=== PATIENT | male | born 1945 | race Caucasian/White ===

== ENCOUNTER → 2018-09-17 | Outpatient (CLI) | payer MEDICARE, OTHER ==
[~2018-09-17] VITALS: Ht 170.2 cm; Wt 97.5 kg
[~2018-09-17] MED LIST: AGM875T PO; AMLO5TAB2 PO; ASPI-586 PO; ASPI-906 PO; BNZ20T PO; CATHETER FLUSH 10 ML SYR IV PRN; CLOP75TA PO; DOXA4TAB2 PO; DOXA8TAB3 PO; HYDR-3455 PO; METO-354 PO; OMEG1CAP52 PO; OMEP20CA12 PO; REGADENOSON 0.4 MG/5 ML SYR (LEXISCAN) IV ONE; ROSU5TAB PO; SILD50TA PO; SIME125C PO; TADA2.5T PO; TELM1TAB3 PO
[2018-09-17 13:09] VITALS: BP 148/81
--- NOTE | 2018-09-18 12:42 | STRESS TEST ---
DATE OF SERVICE: 09/17/2018 LEXISCAN MYOVIEW STRESS TEST REPORT REFERRING PHYSICIAN: Dr. Ying. Baseline heart rate is 67. Baseline blood pressure 205/97. Baseline EKG is sinus rhythm with no ischemic changes. IN SUMMARY: The patient was injected with 10.33 mCi of technetium-99 Myoview and the resting images were obtained. Then, the patient received 0.4 mg of Lexiscan, followed by 30.7 mCi of technetium-99 Myoview. Throughout the test, there were no EKG changes. The resting and stress images were reviewed and compared in the short axis, horizontal long axis, and vertical long axis views. Review of the images showed good radiotracer uptake with no significant ischemia or infarction. SSS is 0. TID value 1.16. On the gated images, the left ventricle appeared to be in normal size with normal contractility. Calculated ejection fraction 45%. IN CONCLUSION: 1. The patient tolerated Lexiscan well. 2. No significant ischemia or infarction on SPECT images. 3. Normal left ventricular size with normal contractility. Calculated ejection fraction 45%. Job ID: [id number] DocumentID: [id number] Dictated Date: 09/18/2018 08:46:18 Relationship Mgr Date: 09/18/2018 12:41:43 Dictated By: CHRISTINE MARTINEZ MD
== END ==
LOC: CARD 11:20
PROVIDERS: ATTEND Internal Medicine Cardiovascular Disease
DX: I25.10 Atherosclerotic heart disease of native coronary artery without angina pectoris (principal); I65.23 Occlusion and stenosis of bilateral carotid arteries; K21.9 Gastro-esophageal reflux disease without esophagitis; I10 Essential (primary) hypertension; E78.5 Hyperlipidemia, unspecified
CPT/HCPCS: 78452; 93017; 93306

== ENCOUNTER 2020-07-28 06:32 | Outpatient (CLI) | payer MEDICARE ==
[~2020-07-28] VITALS: Ht 170.2 cm; Wt 90.9 kg
[~2020-07-28 06:32] MED LIST changes: -CATHETER FLUSH 10 ML SYR IV PRN; -REGADENOSON 0.4 MG/5 ML SYR (LEXISCAN) IV ONE
[2020-07-28] MEDS ORDERED: MTC10T PO (12:59)
[2020-07-28] MEDS ORDERED: ROSU5TAB13 PO (12:59)
[2020-07-28] MEDS ORDERED: ASPI-999 PO (12:59)
[2020-07-28] MEDS ORDERED: AMLO-250 PO (12:59)
[2020-07-28] MEDS ORDERED: BENA20TA7 PO (12:59)
[2020-07-28] MEDS ORDERED: OMEG-77 PO (12:59)
== END 2020-07-28 13:01 | disposition home or self-care (01) ==
LOC: PREOP 06:32
PROVIDERS: ATTEND Specialist
DX: Z01.818 Encounter for other preprocedural examination (principal)

== ENCOUNTER 2020-08-05 10:26 | Day surgery (SDC) | payer MEDICARE ==
[~2020-08-05] VITALS: Ht 170.2 cm; Wt 90.9 kg
[~2020-08-05 10:26] MED LIST changes: +AMLO-250 PO; +ASPI-999 PO; +BENA20TA7 PO; +MTC10T PO; +OMEG-77 PO; +ROSU5TAB13 PO
[2020-08-05] MEDS ORDERED: POVIDONE (BETADINE) OPHTH SOLN 5% 30 ML OP ONE (10:30)
[2020-08-05] MEDS ORDERED: MOXIFLOXACIN OPHTH SOLN 5 MG/ML 0.3 ML SYRINGE OP ONE (10:30)
[2020-08-05] MEDS ORDERED: TIMOLOL MALEATE 0.5% 5 ML (TIMOPTIC) BTL OU PRN (10:30)
[2020-08-05] MEDS ORDERED: LIDOCAINE PF 1% 2 ML VIAL IR PRN (10:30)
[2020-08-05] MEDS: TETRACAINE 0.5% OPHTH SOLN 4 ML BTL (SINGLE DOSE ONLY) OU PRN ×5 (10:41→10:58)
[2020-08-05] MEDS: TROPICAMIDE 1% OPH SOLN (MYDRIACYL) 15 ML BTL OP SCH ×4 (10:47→10:58)
[2020-08-05] MEDS: PHENYLEPHRINE 10% OPHTH (NEO-SYN) 5 ML BTL OU SCH ×4 (10:47→10:58)
[2020-08-05 10:51] VITALS: BP 178/99
[2020-08-05] MEDS ORDERED: MIDAZOLAM 2 MG/2 ML (VERSED) VIAL ONE (10:55)
--- NOTE | 2020-08-05 11:39 | Ophthalmologist Pre-Op Note ---
Pre-Operative Progress Note H&P Reviewed The H&P was reviewed, patient examined and no changes noted. Date H&P Reviewed: Aug 05, 2020 Time H&P Reviewed: 11:39 Pre-Op Dx Cataract, Right Eye AMINAH WILKINSON MD Aug 05, 2020 11:39
[2020-08-05] MEDS ORDERED: acetaZOLAMIDE ER 500 MG CAP (DIAMOX SEQUELS) PO ONE (12:00)
--- NOTE | 2020-08-05 12:06 | Ophthalmology Operative Report ---
Cataract removal/placement IOL PREOPERATIVE DIAGNOSIS: Cataract Right Eye POSTOPERATIVE DIAGNOSIS: Cataract Right Eye PROCEDURE: Cataract removal and placement of posterior chamber implant, right eye SURGEON: Matthew Wilkinson ANESTHESIA: Topical with sedation COMPLICATIONS: None ESTIMATED BLOOD LOSS: Minimal DESCRIPTION OF PROCEDURE: After proper informed consent was obtained, the patient, a 74 male, was taken to the Operating Room and the right eye was anesthetized with tetracaine. The right eye was then prepped and draped in the usual manner. A wire lid speculum was placed. A paracentesis was made at the left hand position. Preservative free lidocaine was injected into the anterior chamber followed by viscoelastic. A clear corneal incision was made in the temporal position. A capsulorrhexis was preformed and the central nuclear and cortical material were removed. The posterior capsule was polished and Bernard 20.5 [id number] IOL was placed into the capsular bag. The residual viscoelastic was aspirated and balanced saline solution was injected into the anterior chamber. Moxifloxacin was injected into the anterior chamber. The wound was checked and found to be water tight. The patient tolerated the procedure well without complications. MATTHEW WILKINSON MD Aug 05, 2020 12:06
[2020-08-05 12:08] VITALS: BP 179/93
--- NOTE | 2020-08-05 16:02 | Anesthesia-General Post-Op ---
MAC Patient Condition Mental Status/LOC: Same as Preop Cardiovascular: Satisfactory Nausea/Vomiting: Absent Respiratory: Satisfactory Pain: Controlled Complications: Absent Post Op Complications Complications None Follow Up Care/Instructions Patient Instructions None needed. Anesthesiology Discharge Order Discharge Order Patient was seen after the procedure and he was doing well, no complaints, stable vital signs, no apparent adverse anesthesia problems. JONATHAN WHEELER 18, 2021 16:02
== END 2020-08-05 12:13 ==
LOC: SDC 10:26
PROVIDERS: ATTEND Specialist
DX: H25.11 Age-related nuclear cataract, right eye (principal); I10 Essential (primary) hypertension; Z79.82 Long term (current) use of aspirin; Z79.899 Other long term (current) drug therapy; Z83.3 Family history of diabetes mellitus; Z80.51 Family history of malignant neoplasm of kidney; Z80.42 Family history of malignant neoplasm of prostate
CPT/HCPCS: 66984; V2632

== ENCOUNTER → 2020-08-15 | Outpatient (CLI) | payer MEDICARE | END | disposition home or self-care (01) | LOC: PREOP 06:27 | PROVIDERS: ATTEND Specialist | DX: Z01.818 Encounter for other preprocedural examination (principal) ==

== ENCOUNTER → 2022-01-02 | Outpatient (CLI) | payer MEDICARE ==
[~2022-01-02] MED LIST changes: +AMLO-251 PO; +BENA-3 PO; -BENA20TA7 PO; +OMEP20CA18 PO; +REGADENOSON 0.4 MG/5 ML SYR (LEXISCAN) IV ONE; +SILD20TA14 PO
[2022-01-02] MEDS: CATHETER FLUSH 10 ML SYR IVP PRN ×2 (10:54→12:15)
[2022-01-02 12:04] VITALS: BP 201/89
--- NOTE | 2022-01-03 08:26 | Cardiology Stress Test Report ---
Stress Test Report Date of Procedure/Referring: Date of Procedure: Jan 02, 2022 PCP Danny Alba DO Admitting Physician Admitting Physician: Attending Physician: Christine Martinez MD Indications: CAD Baseline Heart Rate: 63 Baseline Blood Pressure: Blood Pressure Systolic: 201 Blood Pressure Diastolic: 89 Baseline Vitals Vital Signs Date Time Temp Pulse Resp B/P (MAP) Pulse Ox O2 Delivery O2 Flow Rate FiO2 01/02/22 12:04 65 201/89 (126) 99 Room Air Baseline EKG: Baseline EKG: LBBB Summary After explaining the procedure to the patient, he signed a consent and then brought to the stress nuclear laboratory. Patient received 0.4 mg Lexiscan for stress test, ECG, heart rate and blood pressure were monitored continuously. Resting and stress dose of radio tracer were injected, imaging was acquired and reviewed in short axis, horizontal long axis and vertical long axis views. TID: 1.1 SSS: 9 SDS: 7 EF: 37 1. Patient tolerated Lexiscan well 2. Baseline hypertension persisted during test 3. Reversible ischemia involving the mid to apical anterior wall and mid to apical inferior wall 4. Normal left ventricular size, ejection fraction 37% 5. Baseline left bundle branch block persisted during test CHRISTINE MARTINEZ MD Jan 03, 2022 08:26
== END ==
LOC: CARD 09:55
PROVIDERS: ATTEND Internal Medicine Cardiovascular Disease
DX: I34.0 Nonrheumatic mitral (valve) insufficiency (principal); I11.9 Hypertensive heart disease without heart failure; I25.10 Atherosclerotic heart disease of native coronary artery without angina pectoris
CPT/HCPCS: 78452; 93017; A9502; C8929; 93306

== ENCOUNTER 2022-01-05 07:48 | Day surgery (SDC) | payer MEDICARE ==
[2022-01-05] VITALS (12 sets, daily range): BP systolic 132–177; BP diastolic 63–88
[~2022-01-05] VITALS: Ht 170.2 cm; Wt 93.6 kg
[~2022-01-05 07:48] MED LIST changes: -AMLO-251 PO; -OMEP20CA18 PO; -REGADENOSON 0.4 MG/5 ML SYR (LEXISCAN) IV ONE; -SILD20TA14 PO
[2022-01-05] MEDS ORDERED: LIDOCAINE 1% INJ 30 ML (XYLOCAINE) VIAL ONE (07:51)
[2022-01-05] MEDS ORDERED: HEParin (CATH LAB) 2,000 ML IV ONE (07:51)
[2022-01-05] MEDS ORDERED: NS IV 1000 ML 1,000 ML ONE (07:51)
[2022-01-05] MEDS ORDERED: NS IV 1000 ML 1,000 ML IV SCH ×2 (08:00→10:15)
[2022-01-05 08:23] LABS: HEMATOCRIT 41 % (40-54); HEMOGLOBIN 14.3 g/dL (13.3-17.7); MEAN CORPUSCULAR HEMOGLOBIN 31 pg (25-34); MEAN CORPUSCULAR HGB CONC 35 g/dL (32-36); MEAN CORPUSCULAR VOLUME 89 fL (80-99); MEAN PLATELET VOLUME 9.4 fL (9.0-12.2); PLATELET COUNT 208 10^3/uL (130-400); WHITE BLOOD COUNT 6.4 10^3/uL (4.3-11.0)
--- NOTE | 2022-01-05 08:33 | Diagnostic Imaging Report ---
INDICATION: Evaluation prior to heart catheterization.. TECHNIQUE: Single view chest 8:27 AM. CORRELATION STUDY: None FINDINGS: Heart size upper limits of normal. Vasculature within normal limits. The lungs are clear with no consolidating infiltrate. There is no significant effusion or pneumothorax. IMPRESSION: 1. Negative appearing single view chest. Dictated by: Dictated on workstation # [id number]
[2022-01-05 08:35] LABS: PROTHROMBIN TIME PATIENT 13.1 SEC (12.2-14.7)
[2022-01-05] MEDS ORDERED: OMEP20CA18 PO (08:37)
[2022-01-05] MEDS ORDERED: SILD20TA14 PO (08:37)
[2022-01-05 08:44] LABS: ALBUMIN 4.4 GM/DL (3.2-4.5); BILIRUBIN,TOTAL 0.4 MG/DL (0.1-1.0); CALCIUM 9.2 MG/DL (8.5-10.1); CREATININE SERUM 1.06 MG/DL (0.60-1.30)
[2022-01-05] MEDS ORDERED: fentaNYL INJ 100 MCG/2 ML AMP ONE (09:15)
[2022-01-05] MEDS ORDERED: MIDAZOLAM 5 MG/5 ML (VERSED) VIAL ONE (09:15)
--- NOTE | 2022-01-05 09:21 | Cardiac Procedure Note-CS/ASA ---
Pre-Procedure Note Pre-Op Procedure Note Date of Available H&P: Dec 12, 2021 Date H&P Reviewed: Jan 05, 2022 Time H&P Reviewed: 09:00 History & Physical: H&P Reviewed, Patient Examed, No changes noted Pre-Operative Diagnosis: CAD Conscious Sedation Pre-Proced Time 09:00 ASA Score 3 For ASA 3 and 4: Consider anesthesia and medical clearance. Also, for patients with a history of failed moderate sedation consider anesthesia. Airway Lungs Heart ASA score ASA 1: a normal healthy patient ASA 2: a patient with a mild systemic disease (mid diabetes, controlled hypertension, obesity ASA 3: a patient with a severe systemic disease that limits activity (angina, COPD, prior Myocardial infarction) ASA 4: a patient with an incapacitating disease that is a constant threat to life (CHF, renal failure) ASA 5: a moribund patient not expected to survive 24 hrs. (ruptured aneurysm) ASA 6: a declared brain- patient whose organs are being harvested. For emergent operations, add the letter E after the classification Mallampati Classification Grade 3 Sedation Plan Analgesia, Amnesia, Plan communicated to team members, Discussed options with patient/fam, Discussed risks with patient/fam The patient is an appropriate candidate to undergo the planned procedure, sedation, and anesthesia. The patient immediately re-assessed prior to indication. CHRISTINE MARTINEZ MD Jan 05, 2022 09:21
[2022-01-05 09:38] LABS: CHOLESTEROL 152 MG/DL (< 200); HDL CHOLESTEROL 49 MG/DL (40-60); TRIGLYCERIDES 111 MG/DL (<150); VLDL CHOLESTEROL 22 MG/DL (5-40)
[2022-01-05] MEDS ORDERED: AMLO-251 PO (10:07)
--- NOTE | 2022-01-05 10:07 | Discharge Inst-Post CATH ---
Discharge Inst-CATH/EP Problems Reviewed?: Yes Post Cardiac Cath/EP D/C Inst Follow Up/Plan Appointment with Dr. Arguello's office in 2 to 4 weeks <b>CARDIAC CATH/EP PROCEDURE DISCHARGE INSTRUCTIONS</b> ACTIVITY * Go Home directly and rest. * Limit activity of the leg (or wrist if it was used) for 7 days including aer obics, swimming, jogging, bicycling, etc. * Restrict stair-climbing for 7 days if possible, if not, climb up with your non-cath leg, then bring together on the same step. * Avoid lifting, pushing, pulling or excessive movement of the affected extremi ty for 7 days. * Customary sexual activity may be resumed after 2 days-use caution not to use a position that strains or causes pain to the affected extremity. * No driving for 24 hours. * NO SMOKING. * Avoid straining for bowel movements for 7 days. * Gentle walking on level ground is allowed. * Returning to work will depend on the type of procedure and the results. Your doctor will discuss this with you. CALL YOUR DOCTOR FOR ANY OF THE FOLLOWING: *If bleeding from the puncture site occurs- Apply gentle pressure to site with clean cloth and call your doctor or EMS. * If a knot or lump forms under the skin, increases in size, or causes pain. * If bruising appears to be worsening or moving further down your leg instead of disappearing. * Temperature above 101 F. CARE OF YOUR GROIN INCISION; * Bruising or purple discoloration of the skin near the puncture site is common. * You may shower only, no bathtub bathing for 5 days. Be careful to avoid slipping as your leg may feel stiff. * If a closure device was used on your femoral artery, please see the attached guide regarding care of the device and your leg. * Leave dressing on FOR 24 hours. CARE OF YOUR WRIST INCISION; * Bruising or purple discoloration of the skin near the puncture site is common. * You may shower. * DO NOT submerge wrist. * Leave dressing on FOR 24 hours. CHRISTINE ARGUELLO MD Jan 05, 2022 10:07
--- NOTE | 2022-01-05 10:11 | Cardiac Cath Report ---
Cardiac Cath Report Physician (s)/Price Accuracy Supervisor (s) Physician CHRISTINE MARTINEZ MD Pre-Procedure Diagnosis Pre-Procedure Diagnosis: CAD Post-Procedure Note Procedure Start Date: Jan 05, 2022 Name of Procedure: Left heart catheterization Findings/Procedure Note PROCEDURE NOTE: 76-year-old gentleman with history of coronary artery disease, carotid stenosis, hypertension hyperlipidemia, had an abnormal stress test, scheduled for cardiac catheterization possible PTCA. After explaining the procedure to the patient, all pros and cons were explained, all questions were answered. The patient signed the consent and then he was placed on the cardiac catheterization laboratory. Groin was prepped SL fashion local anesthesia was used. Sheath placed in the right femoral artery. Yolande right and left catheter were used to access the coronary system. Yolande right was prolapsed to the left ventricular cavity, pressure was measured, pullback LV to aorta was done. At the end of the procedure the sheath was removed. Closure device was deployed FINDINGS: Hemodynamics LV 158/11, end-diastolic pressure of 11 Aorta 163/61 mean of 90 ANATOMY: Left Main is free of obstructive disease Left Anterior Descending is calcified proximally with no significant obstructive disease Left Circumflex has mild calcification proximally, no significant obstructive disease Ramus intermedius is moderate in size, 20% stenosis proximally with calcification. No significant obstructive disease Right Coronary Artery is moderate in size with 30% stenosis at the ostium, nonobstructive disease LV Gram was not done pressure was measured CONCLUSION: 1. Mild coronary artery disease, calcification was noted at the ostium LAD and ramus intermediate, nonobstructive disease 2. Normal left ventricular end-diastolic pressure DISCUSSION AND RECOMMENDATION: Continue with medical therapy, patient has been having hypertension, I will increase amlodipine to 10 mg daily and continue on benazepril Anesthesia Type: Conscious Sedation Estimated blood loss (mL): 15 ml Contrast Amount: 50 ml Total Radiation Dose: 509 mGy Post-Procedure Diagnosis Post-operative diagnosis: Coronary artery disease Peripheral arterial disease Hypertension Hyperlipidemia CHRISTINE MARTINEZ MD Jan 05, 2022 10:11
[2022-01-05] MEDS ORDERED: PATIENT MAY USE OWN MEDS, ALL PO SCH (10:15)
== END 2022-01-05 14:20 | disposition home or self-care (01) ==
LOC: CATH 07:48 → CSD 10:26 → CATH 14:20
PROVIDERS: ATTEND Internal Medicine Cardiovascular Disease
DX: I25.10 Atherosclerotic heart disease of native coronary artery without angina pectoris (principal); I10 Essential (primary) hypertension; I66.9 Occlusion and stenosis of unspecified cerebral artery; E66.9 Obesity, unspecified; Z87.891 Personal history of nicotine dependence; Z68.32 Body mass index [BMI] 32.0-32.9, adult; Z79.82 Long term (current) use of aspirin
CPT/HCPCS: 71045; 80053; 80061; 85027; 85610; 85730; 87081; 93005; 93458; C1760; C1894; 36415